=== PATIENT | female | born 1990 | race Caucasian/White ===

== ENCOUNTER → 2016-09-07 | Outpatient (CLI) | payer OTHER ==
--- NOTE | 2016-09-07 15:16 | US ---
EXAMINATION TYPE: US pelvic complete DATE OF EXAM: 09/07/2016 3:01 PM COMPARISON: Prior pelvic ultrasound 06/04/2011. CLINICAL HISTORY: R10.2 Pelvic pain. gen pelvic pain; abnormal pap TECHNIQUE: Transabdominal (TA) Date of LMP: EXAM MEASUREMENTS: Uterus: 8.7 x 4.8 x 5.6 cm Endometrial Stripe: 0.9 cm Right Ovary: 4.0 x 1.3 x 3.3 cm Left Ovary: 3.7 x 1.7 x 2.9 cm 1. Uterus: retroflexed wnl 2. Endometrium: wnl 3. Right Ovary: wnl 4. Left Ovary: wnl 5. Bilateral Adnexa: wnl 6. Posterior cul-de-sac: some free fluid with in the posterior cds Uterus is slightly retroverted in shape. Tiny amount of free fluid in pelvic cul-de-sac is nonspecifi c finding. Both ovaries are identified. No concerning adnexal masses are seen. IMPRESSION: Tiny amount of free fluid in pelvic cul-de-sac, nonspecific finding otherwise unremarkabl e study.
== END | disposition home or self-care (01) ==
LOC: RADUSWWP 14:46
PROVIDERS: ATTEND Obstetrics & Gynecology
DX: R10.2 Pelvic and perineal pain (principal)
CPT/HCPCS: 76856

== ENCOUNTER 2016-12-04 12:06 | Emergency (ER) | payer OTHER ==
[2016-12-04 12:11] VITALS: BP 107/61; PULSE 86; RESP 16; TEMP 99.6
--- NOTE | 2016-12-04 12:51 | ED ---
General Adult HPI - General Chief complaint: OB/Uterine Contractions Stated complaint: Cramping/Spotting 17 weeks Time Seen by Provider: 12/04/16 12:14 Source: patient, RN notes reviewed Mode of arrival: ambulatory Limitations: no limitations - History of Present Illness Initial comments: Patient 26-year-old female who is 17 weeks , who presents emergency room today with chief complaint of spotting. Patient does admit that she noticed some spots morning. Does admit some lower abdominal cramping. Patient denies any other complaints or symptoms. She has seen OB for this . States she has had ultrasound which did show a single IUP. Patient denies any other complaints. - Related Data Home Medications Medication Instructions Recorded Confirmed Pnv,Calcium 72/Iron/Folic Acid 1 tab PO DAILY 12/04/16 12/04/16 [ Plus Tablet] Allergies Allergy/AdvReac Type Severity Reaction Status Date / Time No Known Allergies Allergy Verified 12/04/16 12:58 Review of Systems ROS Statement: Those systems with pertinent positive or pertinent negative responses have been documented in the HPI. ROS Other: All systems not noted in ROS Statement are negative. Past Medical History Past Medical History: No Reported History History of Any Multi-Drug Resistant Organisms: None Reported Past Surgical History: No Surgical Hx Reported Past Psychological History: No Psychological Hx Reported Smoking Status: Never smoker Past Alcohol Use History: None Reported Past Drug Use History: None Reported General Exam - General Exam Comments Initial Comments: General: The patient is awake and alert, in no distress, and does not appear acutely ill. Eye: Pupils are equal, round and reactive to light, extra-ocular movements are intact. No nystagmus. There is normal conjunctiva bilaterally. No signs of icterus. Ears, nose, mouth and throat: There are moist mucous membranes and no oral lesions. Neck: The neck is supple, there is no tenderness or JVD. Cardiovascular: There is a regular rate and rhythm. No murmur, rub or gallop is appreciated. Respiratory: Lungs are clear to auscultation, respirations are non-labored, breath sounds are equal. No wheezes, stridor, rales, or rhonchi. Gastrointestinal: Soft, non-distended, non-tender abdomen without masses or organomegaly noted. There is no rebound or guarding present. No CVA tenderness. Bowel sounds are unremarkable. Musculoskeletal: Normal ROM, no tenderness. Strength 5/5. Sensation intact. Pulses equal bilaterally 2+. Neurological: A&O x 3. CN II-XII intact, There are no obvious motor or sensory deficits. Coordination appears grossly intact. Speech is normal. Skin: Skin is warm and dry and no rashes or lesions are noted. Psychiatric: Cooperative, appropriate mood & affect, normal judgment. Limitations: no limitations Course Vital Signs 12/04/16 12:07 Temperature 99.6 F Pulse Rate 86 Respiratory 16 Rate Blood Pressure 107/61 O2 Sat by Pulse 100 Oximetry Medical Decision Making - Medical Decision Making heart tones performed by OB nurse. 1 48 bpm. Patient's labs reviewed. Rh-. Patient does admit to some spotting that started earlier this morning. Patient's vitals stable. No pain. No other complaints at this time. Patient will be given Auralgan here in the emergency room. Advised follow-up with the ALLERGY NURSE over the next 1-2 days. Advised return here to the emergency room for any other concerns. - Lab Data Result diagrams: 12/04/16 12:50 12/04/16 12:50 Lab Results 12/04/16 12/04/16 12/04/16 Range/Units 12:50 12:50 12:50 WBC 11.3 H (3.8-10.6) k/uL RBC 4.05 (3.80-5.40) m/uL Hgb 12.7 (11.4-16.0) gm/dL Hct 36.8 (34.0-46.0) % MCV 90.8 D (80.0-100.0) fL MCH 31.5 (25.0-35.0) pg MCHC 34.6 (31.0-37.0) g/dL RDW 13.2 (11.5-15.5) % Plt Count 185 (150-450) k/uL Neutrophils % 84 % Lymphocytes % 10 % Monocytes % 4 % Eosinophils % 1 % Basophils % 0 % Neutrophils # 9.5 H (1.3-7.7) k/uL Lymphocytes # 1.2 (1.0-4.8) k/uL Monocytes # 0.4 (0-1.0) k/uL Eosinophils # 0.1 (0-0.7) k/uL Basophils # 0.0 (0-0.2) k/uL Sodium 137 (137-145) mmol/L Potassium 4.1 (3.5-5.1) mmol/L Chloride 108 H (98-107) mmol/L Carbon Dioxide 20 L (22-30) mmol/L Anion Gap 9 mmol/L BUN 6 L (7-17) mg/dL Creatinine 0.62 (0.52-1.04) mg/dL Est GFR (MDRD) Af Amer >60 (>60 ml/min/1.73 sqM) Est GFR (MDRD) Non-Af >60 (>60 ml/min/1.73 sqM) Glucose 69 L (74-99) mg/dL Calcium 8.8 (8.4-10.2) mg/dL Total Bilirubin 0.3 (0.2-1.3) mg/dL AST 20 (14-36) U/L ALT 30 (9-52) U/L Alkaline Phosphatase 58 (38-126) U/L Total Protein 6.4 (6.3-8.2) g/dL Albumin 3.7 (3.5-5.0) g/dL Urine Color Urine Appearance (Clear) Urine pH (5.0-8.0) Ur Specific Leadore (1.001-1.035) Urine Protein (Negative) Urine Glucose (UA) (Negative) Urine Ketones (Negative) Urine Blood (Negative) Urine Nitrite (Negative) Urine Bilirubin (Negative) Urine Urobilinogen (<2.0) mg/dL Ur Leukocyte Esterase (Negative) Blood Type AB Negative Blood Type Recheck No 12/04/16 Range/Units 12:50 WBC (3.8-10.6) k/uL RBC (3.80-5.40) m/uL Hgb (11.4-16.0) gm/dL Hct (34.0-46.0) % MCV (80.0-100.0) fL MCH (25.0-35.0) pg MCHC (31.0-37.0) g/dL RDW (11.5-15.5) % Plt Count (150-450) k/uL Neutrophils % % Lymphocytes % % Monocytes % % Eosinophils % % Basophils % % Neutrophils # (1.3-7.7) k/uL Lymphocytes # (1.0-4.8) k/uL Monocytes # (0-1.0) k/uL Eosinophils # (0-0.7) k/uL Basophils # (0-0.2) k/uL Sodium (137-145) mmol/L Potassium (3.5-5.1) mmol/L Chloride (98-107) mmol/L Carbon Dioxide (22-30) mmol/L Anion Gap mmol/L BUN (7-17) mg/dL Creatinine (0.52-1.04) mg/dL Est GFR (MDRD) Af Amer (>60 ml/min/1.73 sqM) Est GFR (MDRD) Non-Af (>60 ml/min/1.73 sqM) Glucose (74-99) mg/dL Calcium (8.4-10.2) mg/dL Total Bilirubin (0.2-1.3) mg/dL AST (14-36) U/L ALT (9-52) U/L Alkaline Phosphatase (38-126) U/L Total Protein (6.3-8.2) g/dL Albumin (3.5-5.0) g/dL Urine Color Colorless Urine Appearance Clear (Clear) Urine pH 6.0 (5.0-8.0) Ur Specific Leadore 1.001 (1.001-1.035) Urine Protein Negative (Negative) Urine Glucose (UA) Negative (Negative) Urine Ketones Negative (Negative) Urine Blood Negative (Negative) Urine Nitrite Negative (Negative) Urine Bilirubin Negative (Negative) Urine Urobilinogen <2.0 (<2.0) mg/dL Ur Leukocyte Esterase Negative (Negative) Blood Type Blood Type Recheck Disposition Clinical Impression: Threatened Disposition: HOME SELF-CARE Condition: Good Instructions: Threatened Miscarriage (ED) Additional Instructions: Please follow-up with ALLERGY NURSE over the next 1-2 days. Please return here the emergency room if any symptoms increase or worsen or for any other concerns. Referrals: Elmo Montaño DO [Primary Care Provider] - 1-2 days Vinita Devi DO [Doctor of Osteopathic Medicine] - 1-2 days Time of Disposition: 13:49
[2016-12-04 13:06] LABS: Appearance,Urine Clear (Clear); Basophils % (A) 0 %; Bilirubin,Urine Negative (Negative); CH 32.2; CHCM 35.6; Eosinophils # (A) 0.1 k/uL (0-0.7); Eosinophils % (A) 1 %; Glucose,Urine (UA) Negative (Negative); HCT 36.8 % (34.0-46.0); HDW 2.69; HGB 12.7 gm/dL (11.4-16.0); Ketones,Urine Negative (Negative); Leukocyte Esterase,Urine Negative (Negative); Luc # (Auto) 0.15; Luc % (Auto) 1; Lymphocytes # (A) 1.2 k/uL (1.0-4.8); Lymphocytes % (A) 10 %; MCH 31.5 pg (25.0-35.0); MCHC 34.6 g/dL (31.0-37.0); Mean Platelet Volume 7.6; Monocytes # (A) 0.4 k/uL (0-1.0); Monocytes % (A) 4 %; Neutrophils # (A) 9.5 k/uL (1.3-7.7); Neutrophils % (A) 84 %; Nitrite,Urine Negative (Negative); Protein,Urine Negative (Negative); RBC 4.05 m/uL (3.80-5.40); RDW 13.2 % (11.5-15.5); Specific Gravity,Urine 1.001 (1.001-1.035); UA Billing (MACRO vs. MICRO) CHEM; Urobilinogen,Urine <2.0 mg/dL (<2.0); WBC 11.3 k/uL (3.8-10.6); WBC (Perox) 12.03
[2016-12-04 13:16] LABS: ALT 30 U/L (9-52); AST 20 U/L (14-36); Alkaline Phosphatase 58 U/L (38-126); Anion Gap 9 mmol/L; Blood Urea Nitrogen 6 mg/dL (7-17); Calcium 8.8 mg/dL (8.4-10.2); Carbon Dioxide 20 mmol/L (22-30); Chloride 108 mmol/L (98-107); Glucose 69 mg/dL (74-99); Non-African American GFR(MDRD) >60 (>60 ml/min/1.73 sqM); Potassium 4.1 mmol/L (3.5-5.1); Sodium 137 mmol/L (137-145); Total Bilirubin 0.3 mg/dL (0.2-1.3); Total Protein 6.4 g/dL (6.3-8.2)
[2016-12-04 13:20] LABS: MCV 90.8 fL (80.0-100.0)
[2016-12-04] MEDS ORDERED: Rhogam IMMUNE GLOBULIN 1,500 UNIT/1 ML IM ONE (13:46)
== END 2016-12-04 14:15 | disposition home or self-care (01) ==
LOC: EC 12:06
DX: O20.0 Threatened abortion (principal); Z3A.17 17 weeks gestation of pregnancy; Z79.899 Other long term (current) drug therapy
CPT/HCPCS: 36415; 86900; 86901; 80053; 85025; 86850; 81003; 99284; 96372; 87086; J2791

== ENCOUNTER 2016-12-09 18:37 | Observation (INO) | payer OTHER ==
--- NOTE | 2016-12-09 19:16 | ED ---
General Adult HPI <Jhon Pedersen - Last Filed: 12/09/16 20:10> - General Source: patient, RN notes reviewed Mode of arrival: ambulatory Limitations: no limitations <Orly Erazo - Last Filed: 12/09/16 20:15> - General Chief complaint: Vaginal Bleeding Stated complaint: bleeding, 17 weeks Time Seen by Provider: 12/09/16 19:02 - History of Present Illness Initial comments: 26-year-old female with a presents to the emergency department with a chief complaint of vaginal bleeding at 17 weeks . Patient states this initially started with brown spotting and has progressed to vaginal bleeding. Patient states she was evaluated on Monday for brown spotting they did blood work everything looked fine. She followed up with her doctor on Monday who did ultrasound and stated everything looked good as well. She states now she's having heavy bleeding. Patient states that she is soaking a pad. Patient states she is passing some clots. Patient denies any lightheadedness or dizziness. Patient was concerned due to the bleeding so she thought that she should be evaluated. Patient states she is having cramping like infection type discomfort. Denies any nausea or vomiting. Patient denies any recent fever, chills, shortness of breath, chest pain, back pain,nausea vomiting, numbness or tingling, dysuria or hematuria, constipation or diarrhea, headaches or visual changes, or any other current symptoms. (Orly Erazo) - Related Data Home Medications Medication Instructions Recorded Confirmed Upb-Lvif-Ddwny Acid 1 cap PO DAILY 12/09/16 12/09/16 [-U Capsule (formulary)] Allergies Allergy/AdvReac Type Severity Reaction Status Date / Time No Known Allergies Allergy Verified 12/09/16 18:57 Review of Systems ROS Other: All systems not noted in ROS Statement are negative. <Jhon Pedersen - Last Filed: 12/09/16 20:10> ROS Other: All systems not noted in ROS Statement are negative. <Orly Erazo - Last Filed: 12/09/16 20:15> ROS Statement: Those systems with pertinent positive or pertinent negative responses have been documented in the HPI. Past Medical History Past Medical History: No Reported History History of Any Multi-Drug Resistant Organisms: None Reported Past Surgical History: No Surgical Hx Reported Past Psychological History: No Psychological Hx Reported Smoking Status: Never smoker Past Alcohol Use History: None Reported Past Drug Use History: None Reported <KaceyOrly - Last Filed: 12/09/16 20:15> General Exam Limitations: no limitations General appearance: alert, in no apparent distress ENT exam: Present: normal exam, mucous membranes moist Neck exam: Present: normal inspection. Absent: tenderness, meningismus, lymphadenopathy Respiratory exam: Present: normal lung sounds bilaterally. Absent: respiratory distress, wheezes, rales, rhonchi, stridor Cardiovascular Exam: Present: regular rate, normal rhythm, normal heart sounds. Absent: systolic murmur, diastolic murmur, rubs, gallop, clicks External exam: Present: normal external exam Speculum exam: Present: cervical discharge (Does appear to have some amniotic sac through the cervix), vaginal bleeding Extremities exam: Present: normal inspection, full ROM, normal capillary refill. Absent: tenderness, pedal edema, joint swelling, calf tenderness Back exam: Present: normal inspection Neurological exam: Present: alert, oriented X3 Psychiatric exam: Present: normal affect, normal mood <Orly Erazo - Last Filed: 12/09/16 20:15> Medical Decision Making - Lab Data Result diagrams: 12/09/16 19:40 <Jhon Pedersen - Last Filed: 12/09/16 20:10> - Lab Data Result diagrams: 12/09/16 19:40 - Radiology Data Radiology results: image reviewed <KaceyOrly - Last Filed: 12/09/16 20:15> - Medical Decision Making Medical decision-making. The patient has had vaginal bleeding for several days. She presents today with pressure and continued bleeding. The patient's 17 weeks along. 5 days ago the patient was in emergency room had some bleeding and received RhoGAM. The patient sees Dr. Devi. While having the ultrasound done this evening surgical instruments inspector reports that the water did break and she can see the head starting the crown through the cervix. The case was discussed with Dr. Larsen. He wants the patient sent up to labor and delivery. Patient' s vital signs show temperature 97.6 pulse 84 respiratory rate 20 pulse ox 99% room air blood pressure 123/58. Dr. Pedersen (Jhon Pedersen) 26-year-old female presents emergency Department chief complaint of vaginal bleeding in . Patient's previous visit on Monday is reviewed and she does appear that she received a RHogam injection at that time. At this time ultrasound was performed with the patient's water did break and they do see the head and position for delivery. At this time Dr. Pedersen talked to Dr. Love and the patient will be admitted for further care. We did order pain medication (Orly Erazo) - Lab Data Lab Results 12/09/16 12/09/16 Range/Units 19:40 19:40 WBC 13.9 H (3.8-10.6) k/uL RBC 4.11 (3.80-5.40) m/uL Hgb 12.9 (11.4-16.0) gm/dL Hct 35.9 (34.0-46.0) % MCV 87.6 (80.0-100.0) fL MCH 31.5 (25.0-35.0) pg MCHC 36.0 (31.0-37.0) g/dL RDW 12.3 (11.5-15.5) % Plt Count 209 (150-450) k/uL Neutrophils % 85 % Lymphocytes % 10 % Monocytes % 3 % Eosinophils % 1 % Basophils % 0 % Neutrophils # 11.8 H (1.3-7.7) k/uL Lymphocytes # 1.3 (1.0-4.8) k/uL Monocytes # 0.4 (0-1.0) k/uL Eosinophils # 0.1 (0-0.7) k/uL Basophils # 0.0 (0-0.2) k/uL PT 9.3 (9.0-12.0) sec INR 0.9 (<1.2) APTT 22.7 (22.0-30.0) sec Disposition <Jhon Pedersen - Last Filed: 12/09/16 20:10> Time of Disposition: 20:15 Decision Date: 12/09/16 Decision Time: 20:15 <Orly Erazo - Last Filed: 12/09/16 20:15> Clinical Impression: Spontaneous miscarriage Disposition: ADMITTED IP TO THIS [facility] Condition: Stable Referrals: Elmo Montaño DO [Primary Care Provider] - 1-2 days
[2016-12-09 19:58] LABS: Basophils % (A) 0 %; CH 31.2; CHCM 35.8; Eosinophils # (A) 0.1 k/uL (0-0.7); Eosinophils % (A) 1 %; HCT 35.9 % (34.0-46.0); HDW 2.78; HGB 12.9 gm/dL (11.4-16.0); Luc # (Auto) 0.17; Luc % (Auto) 1; Lymphocytes # (A) 1.3 k/uL (1.0-4.8); Lymphocytes % (A) 10 %; MCH 31.5 pg (25.0-35.0); MCV 87.6 fL (80.0-100.0); Mean Platelet Volume 7.1; Monocytes # (A) 0.4 k/uL (0-1.0); Monocytes % (A) 3 %; Neutrophils # (A) 11.8 k/uL (1.3-7.7); Neutrophils % (A) 85 %; RBC 4.11 m/uL (3.80-5.40); RDW 12.3 % (11.5-15.5); WBC 13.9 k/uL (3.8-10.6); WBC (Perox) 13.98
[2016-12-09] MEDS ORDERED: MORPHINE SULFATE 4 MG/ML SYRINGE IV STA (20:05)
[2016-12-09 20:09] LABS: INR 0.9 (<1.2); Partial Thromboplastin Time 22.7 sec (22.0-30.0); Prothrombin Time 9.3 sec (9.0-12.0)
[2016-12-09] MEDS ORDERED: SODIUM CHLORIDE 0.9% 1,000 ML IV STA (20:12)
[2016-12-09 20:18] LABS: ALT 35 U/L (9-52); AST 21 U/L (14-36); Alkaline Phosphatase 83 U/L (38-126); Anion Gap 9 mmol/L; Blood Urea Nitrogen 10 mg/dL (7-17); Calcium 9.2 mg/dL (8.4-10.2); Carbon Dioxide 22 mmol/L (22-30); Chloride 106 mmol/L (98-107); Glucose 77 mg/dL (74-99); Non-African American GFR(MDRD) >60 (>60 ml/min/1.73 sqM); Sodium 137 mmol/L (137-145); Total Bilirubin 0.3 mg/dL (0.2-1.3); Total Protein 6.5 g/dL (6.3-8.2)
[2016-12-09 20:48] VITALS: BMI 19.5
--- NOTE | 2016-12-09 20:50 | US ---
EXAMINATION TYPE: US OB limited DATE OF EXAM: 12/09/2016 COMPARISON: None CLINICAL HISTORY: PainBleeding TECHNIQUE: Transabdominal (TA) GESTATIONAL AGE / DATING Physician Established: (17 weeks/3 days) EDC: 05/16/2017 Dates by LMP: (17 weeks/3 days) EDC: 05/16/2017 Dates by First Scan: ) This is first scan SURVEY The cervix is open head within. Patients water broke during exam. Stopped exam and took patient back to ER OB Doctor was paged. IMPRESSION: This limited exam shows opening of the cervical canal that measures 1.7 cm. There is fluid in the vag inal vault consistent with herniation of the membranes. There is cephalic presentation. The hea d is at the open cervical os.
[2016-12-09] MEDS ORDERED: AMPICILLIN 2,000 MG in SODIUM CHLORIDE 0.9% 100 ML IVPB STA (21:00)
[2016-12-09] MEDS: LACTATED RINGERS 1,000 ML IV SCH (21:22)
[2016-12-09] MEDS ORDERED: BUPIVACAINE (PF) 0.25% 25 ML, fentaNYL (PF) 200 MCG in SODIUM CHLORIDE 0.9% 71 ML EPIDURAL ONE (21:45)
[2016-12-09] MEDS ORDERED: IBUPROFEN 600 MG TAB PO PRN (22:39)
[2016-12-09] MEDS ORDERED: diphenhydrAMINE 50 MG CAP PO PRN (22:39)
[2016-12-09] MEDS ORDERED: diphenhydrAMINE 50 MG/ML 1 ML VIAL IVP PRN ×2 (22:39)
[2016-12-09] MEDS ORDERED: SIMETHICONE 80 MG CHEWABLE PO PRN (22:39)
[2016-12-09] MEDS ORDERED: LANOLIN CREAM 5 GM TUBE TOPICAL PRN (22:39)
[2016-12-09] MEDS ORDERED: HYDROCORTISONE 2.5% RECTAL CREAM 30 GM TUBE RECTAL PRN (22:39)
[2016-12-09] MEDS ORDERED: BENZOCAINE/MENTHOL SPRAY 1 GM/SPRAY AEROSOL TOPICAL PRN (22:39)
[2016-12-09] MEDS ORDERED: WITCH HAZEL 1 EACH MED..PAD TOPICAL PRN (22:39)
[2016-12-09] MEDS ORDERED: ZOLPIDEM 5 MG TAB PO PRN (22:39)
[2016-12-09] MEDS ORDERED: Acetaminophen-Codeine 300-30mg TAB PO PRN ×2 (22:39)
[2016-12-09] MEDS ORDERED: ACETAMINOPHEN TAB 325 MG TAB PO PRN (22:39)
[2016-12-09] MEDS ORDERED: diphenhydrAMINE 25 MG CAP PO PRN (22:39)
[2016-12-09] MEDS ORDERED: OXYTOCIN 20 UNITS/1000 ML NS 1,000 ML IV SCH (22:45)
--- NOTE | 2016-12-09 23:13 | P.HPOB ---
History of Present Illness H&P Date: 12/09/16 Chief Complaint: Intrauterine at 17 weeks premature rupture of membranes Patient is a 26-year-old at 17 weeks gestation who began having some dark spotting on Monday. She was seen in the office on Monday and ultrasound was performed. At that time no gross abnormality's were noted and released home. Dr. Gleason had given her precautions and when she began having some mild bleeding and passing clots this afternoon she came to the emergency room. In the emergency room she underwent a ultrasound and during the ultrasound her water broke. It is noted that in seeing the pictures that were there during the initial part of the ultrasound there was a dilated cervix with a bag of water in the vagina indicating likely cervical incompetence. She had not been betty prior to that and had not had any sick significant pains or other findings like leaking or any significant bleeding. Her past medical history otherwise has been generally unremarkable. Past surgical history none. She did have a 6 week demise in the past as well. Family history is noncontributory. ALLERGIES none. Medications and social history are also negative. Assessment intrauterine at 17 weeks with premature rupture membranes in a nonviable baby. Plan will be to anticipate delivery. If she is not making any progress towards delivery we will plan to [facility] for assistance in getting her betty. We'll also do IV antibiotics as prophylaxis and since we don't know for sure that there is not some type of infection that may have precipitated this event. Her white blood cell count is however only slightly elevated at 13 which is not surprising in . On physical exam vital signs are stable and she is afebrile. Heart regular, lungs clear, extremities without pain. Past Medical History Past Medical History: No Reported History History of Any Multi-Drug Resistant Organisms: None Reported Past Surgical History: No Surgical Hx Reported Past Anesthesia/Blood Transfusion Reactions: No Reported Reaction Past Psychological History: No Psychological Hx Reported Smoking Status: Never smoker Past Alcohol Use History: None Reported Past Drug Use History: None Reported - Past Family History Mother Family Medical History: No Reported History Medications and Allergies Home Medications Medication Instructions Recorded Confirmed Type Mxo-Vinw-Jefkk Acid 1 cap PO DAILY 12/09/16 12/09/16 History [-U Capsule (formulary)] Allergies Allergy/AdvReac Type Severity Reaction Status Date / Time No Known Allergies Allergy Verified 12/09/16 18:57 Exam Osteopathic Statement: *. No significant issues noted on an osteopathic structural exam other than those noted in the History and Physical/Consult. - Vital Signs Vital signs: Vital Signs Temp Pulse Pulse Resp BP BP Pulse Ox 12/09/16 22:45 97.8 F 90 15 101/54 12/09/16 20:43 98 F 94 15 109/66 12/09/16 18:55 97.6 F 84 20 123/58 99 Intake and Output 12/09/16 12/09/16 12/10/16 14:59 22:59 06:59 Other: # Voids 1 Weight 56.699 kg Patient Weight 12/10/16 06:59 Weight 56.699 kg Results Result Diagrams: 12/09/16 19:40 12/09/16 19:40 Abnormal Lab Results - Last 24 Hours (Table) 12/09/16 Range/Units 19:40 WBC 13.9 H (3.8-10.6) k/uL Neutrophils # 11.8 H (1.3-7.7) k/uL
--- NOTE | 2016-12-09 23:14 | P.PROBDLV ---
Vaginal Delivery Note - . Vaginal Delivery Note: Patient progressed and delivered a nonviable baby over an intact perineum. A short while later the placenta was also delivered and appears grossly to be intact. Her bleeding is well controlled and we will plan to monitor for now and make decisions on her discharge based on how she feels through the night. I was not present at the time of delivery, arriving just after delivery of the placenta
[2016-12-10] MEDS: AMPICILLIN 1,000 MG in SODIUM CHLORIDE 0.9% 50 ML IVPB SCH ×2 (01:11→05:35)
[2016-12-10] MEDS: LACTATED RINGERS 1,000 ML IV SCH (06:33)
[2016-12-10] MEDS ORDERED: SENNOSIDES-DOCUSATE SODIUM 1 EACH TAB PO SCH (08:00)
--- NOTE | 2016-12-10 08:20 | P.DS ---
Providers Date of admission: 12/09/16 20:12 Expected date of discharge: 12/10/16 Attending physician: Brenden Love [facility] Course: Patient is doing well this morning day 1 following delivery of a nonviable 17 week fetus. Her bleeding is reported to be light she is involuting , voiding and she is tolerating a diet. She is requesting discharge home. We' ll plan discharged home today she'll follow up with Dr. Gleason this week. Otherwise vital signs are stable and afebrile. Heart regular, lungs clear, extremities without pain. Abdomen is soft and uterus top eighth is firm. Assessment day 1 demise. Plan discharged home Patient Condition at Discharge: Good Plan - Discharge Summary New Discharge Prescriptions: No Action Efn-Mxpo-Rbqcy Acid [-U Capsule (formulary)] 1 cap PO DAILY Discharge Medication List Vbc-Htpm-Jyywu Acid [-U Capsule (formulary)] 1 cap PO DAILY [History] Follow up Appointment(s)/Referral(s): Elmo Montaño DO [Primary Care Provider] - 1-2 days Vinita Devi DO [Doctor of Osteopathic Medicine] - 1 Week Activity/Diet/Wound Care/Special Instructions: No heavy lifting, limit stairs and driving and pelvic rest. If any high temperatures, heavy bleeding, or severe pain call my office Discharge Disposition: HOME SELF-CARE
[2016-12-10 09:09] VITALS: BP 95/57; PULSE 91; RESP 17; TEMP 98.2
== END 2016-12-10 09:16 | disposition home or self-care (01) ==
LOC: EC 18:37 → INTOOBSV 20:12 → 4FBP 20:12
PROVIDERS: ADMIT Obstetrics & Gynecology; ATTEND Obstetrics & Gynecology
DX: O02.1 Missed abortion (principal); O42.912 Preterm premature rupture of membranes, unspecified as to length of time between rupture and onset of labor, second trimester; Z3A.17 17 weeks gestation of pregnancy; Z37.1 Single stillbirth
CPT/HCPCS: 96361; 96365; 96366; 99285; 36415; 86900; 86901; 88305; 80053; 85025; 85610; 85730; 86850; 86870; 86880; 84702; 88300; 76815; G0378; J0290 ×2; J2590; 96367

== ENCOUNTER → 2017-01-10 | Outpatient (CLI) | payer OTHER ==
[2017-01-10 10:42] LABS: Basophils % (A) 1 %; CH 30.1; Eosinophils # (A) 0.1 k/uL (0-0.7); Eosinophils % (A) 3 %; HCT 41.9 % (34.0-46.0); HDW 2.52; HGB 14.3 gm/dL (11.4-16.0); Luc # (Auto) 0.11; Luc % (Auto) 3; Lymphocytes # (A) 1.3 k/uL (1.0-4.8); Lymphocytes % (A) 37 %; MCH 31.2 pg (25.0-35.0); MCV 91.6 fL (80.0-100.0); Mean Platelet Volume 7.8; Monocytes # (A) 0.2 k/uL (0-1.0); Monocytes % (A) 7 %; Neutrophils # (A) 1.8 k/uL (1.3-7.7); Neutrophils % (A) 49 %; RBC 4.58 m/uL (3.80-5.40); RDW 11.3 % (11.5-15.5); WBC 3.6 k/uL (3.8-10.6); WBC (Perox) 3.82
== END | disposition home or self-care (01) ==
LOC: LABPAT 09:08
PROVIDERS: ATTEND Obstetrics & Gynecology
DX: Z01.812 Encounter for preprocedural laboratory examination (principal)
CPT/HCPCS: 85025

== ENCOUNTER 2017-01-17 07:32 | Day surgery (SDC) | payer OTHER ==
[2017-01-12 15:59] VITALS: BMI 19.1
--- NOTE | 2017-01-16 19:47 | P.HPOB ---
History of Present Illness H&P Date: 01/16/17 Chief Complaint: Family planning This is a 26-year-old female 2 para 1 who presents for laparoscopic bilateral tubal ligation via fulguration for family planning. She recently had a 17 week demise with miscarriage. She no longer wants to pursue fertility and would like permanent sterilization. Obstetrical history: . History of 1 vaginal delivery at term. History of 1 miscarriage at approximately 17-1/2 weeks. Gynecologic history: No history of sexual transmitted diseases. Social history: She is area she works at [employer] in [place]. Review of Systems Constitutional: Denies chills, Denies fever Eyes: denies blurred vision, denies pain Ears, nose, mouth and throat: Denies headache, Denies sore throat Cardiovascular: Denies chest pain, Denies shortness of breath Respiratory: Denies cough Gastrointestinal: Denies abdominal pain, Denies diarrhea, Denies nausea, Denies vomiting Genitourinary: Denies dysuria, Denies hematuria Menstruation: Reports cycle variable Musculoskeletal: Denies myalgias Neurological: Denies numbness, Denies weakness Psychiatric: Denies anxiety, Denies depression Endocrine: Denies fatigue, Denies weight change Past Medical History Past Medical History: No Reported History Additional Past Medical History / Comment(s): miscarriage in November History of Any Multi-Drug Resistant Organisms: None Reported Past Surgical History: Tonsillectomy Past Anesthesia/Blood Transfusion Reactions: No Reported Reaction Past Psychological History: No Psychological Hx Reported Smoking Status: Never smoker Past Alcohol Use History: None Reported Past Drug Use History: None Reported - Past Family History Mother Family Medical History: No Reported History Medications and Allergies Home Medications Medication Instructions Recorded Confirmed Type No Known Home Medications [No 01/12/17 01/12/17 History Known Home Medications] Allergies Allergy/AdvReac Type Severity Reaction Status Date / Time No Known Allergies Allergy Verified 01/12/17 15:18 Exam Osteopathic Statement: *. No significant issues noted on an osteopathic structural exam other than those noted in the History and Physical/Consult. HEENT: Within normal limits Heart: Regular rate and rhythm Lungs: Clear to auscultation bilaterally Abdomen: Soft, nontender Pelvic exam: Uterus is slightly enlarged, retroverted, with no adnexal masses palpated. A scant brown discharge noted. Extremities: Negative Homans Assessment and Plan (1) Family planning Status: Acute Plan: Proceed with laparoscopic bilateral tubal ligation via fulguration. I have discussed the risks, benefits, and alternative therapies for the above- mentioned procedure and for both sedation/anesthesia as well as necessary blood products administration, if indicated, as they pertain to this patient. The patient has indicated her understanding and acceptance of the risks and procedures discussed.
[~2017-01-17 07:32] MED LIST: DEXAMETHASONE SOD PHOSPHATE 10 MG/ML 1 ML VIAL IV ONE; HYDROmorphone 0.5 MG/0.5 ML SYRINGE IVP PRN; LACTATED RINGERS 1,000 ML IV SCH; MIDAZOLAM 2 MG/2 ML VIAL IV PRN; ONDANSETRON 4 MG/2 ML VIAL IVP ONE; Pre Op ABX Message 1 EACH MISC MISCELLANE ONE; SCOPOLAMINE 1.5MG/72HR PATCH TRANSDERM ONE
[2017-01-17] MEDS ORDERED: LIDOCAINE 1% 20 ML VIAL (10MG/ML) FOR IV START INTRADERMA ONE (08:00)
[2017-01-17] MEDS ORDERED: NEOSTIGMINE 1 MG/ML 10 ML VIAL ONE (09:09)
[2017-01-17] MEDS ORDERED: ROCURONIUM BROMIDE 10 MG/ML 10 ML VIAL IV ONE (09:09)
[2017-01-17] MEDS ORDERED: KETOROLAC 30 MG/ML 1 ML VIAL ONE (09:09)
[2017-01-17] MEDS ORDERED: GLYCOPYRROLATE 0.2 MG/ML 2 ML VIAL ONE (09:09)
[2017-01-17] MEDS ORDERED: PROPOFOL 10 MG/ML 20 ML VIAL IV ONE (09:09)
[2017-01-17] MEDS ORDERED: MIDAZOLAM 2 MG/2 ML VIAL ONE (09:09)
[2017-01-17] MEDS ORDERED: SUCCINYLCHOLINE CHLORIDE 100 MG/5 ML SYR IV ONE (09:09)
[2017-01-17] MEDS ORDERED: fentaNYL (PF) 50 MCG/ML 2 ML AMP ONE (09:09)
[2017-01-17] MEDS ORDERED: LIDOCAINE 1% INJ 10MG/ML (20 ML MDV) ONE (09:09)
[2017-01-17] MEDS ORDERED: BUPIVACAINE (PF) 0.25% 30 ML VIAL SQ ONE ×2 (09:29→09:40)
--- NOTE | 2017-01-17 09:44 | P.OP ---
Date of Procedure: 01/17/17 Preoperative Diagnosis: Family planning Postoperative Diagnosis: Same Procedure(s) Performed: Laparoscopic bilateral tubal ligation via fulguration Anesthesia: PAT Surgeon: Vinita Devi Estimated Blood Loss (ml): 5 Pathology: none sent Condition: stable Disposition: same day Indications for Procedure: This is a 26-year-old female 2 para 1 who presents for laparoscopic bilateral tubal ligation via fulguration for family planning. She recently had a 17 week demise with miscarriage. She no longer wants to pursue fertility and would like permanent sterilization. Operative Findings: Uterus is retroverted, sounded to 9-1/2 cm. Normal uterus tubes and ovaries are noted. There is a small follicular cyst noted on the right ovary. Appendix appears normal. Description of Procedure: The patient is taken to the operating room where she is placed in the dorsal lithotomy position. She is prepped and draped in the normal sterile fashion. Examination is performed under anesthesia. Uterus is found to be in a retroverted position. No adnexal masses were palpated. Next a bivalve speculum was placed in the patient's vagina. A single-tooth tenaculum was used to grasp the anterior lip of the cervix. The uterus was sounded to 9.5 cm. The kroner uterine manipulator was then inserted through the cervix and the balloon was inflated. The single-tooth tenaculum is removed. Speculum was removed and gloves were changed and attention was turned to the abdomen. The infraumbilical fold was grasped in transverse fashion with 2 Allis clamps. A small transverse incision was made with a scalpel. A hemostat was used to carry the incision down to the underlying layer of fascia. A towel clip was placed above the umbilicus for retraction. An 11 mm disposable bladeless trocar was then inserted into the peritoneal cavity under direct visualization. Once inside, pneumoperitoneum was achieved with CO2 gas. The insert was removed and the camera was replaced. Intraperitoneal placement was confirmed. No bleeding was noted. Next the patient was placed in Trendelenburg position. A small stab incision was made suprapubically and a 5 mm disposable bladeless trocar was inserted into the peritoneal cavity under direct visualization. Once inside pelvic contents were inspected. Next a bipolar Kleppinger instrument was placed through the inferior trocar and the midportion of each tube was brought away from other structures and completely fulgurated on approximate 2-3 cm segment of each tube. Excellent hemostasis was noted. A picture was taken. Pneumoperitoneum was released after the inferior trocar was removed under direct visualization. The upper trocar was then removed. The fascial incision was closed with 0 Vicryl suture in interrupted [id number] stitch. The skin incisions were then closed with 4-0 Vicryl suture in a subcuticular fashion. The incision sites and then injected with quarter percent Marcaine. Approximately 8 mL are used. Next the kroner uterine manipulator was removed. Minimal bleeding was noted. All sponge and needle counts are correct. The patient is then taken to recovery room in stable condition.
[2017-01-17 10:04] VITALS: TEMP 98.8
[2017-01-17 10:40] VITALS: RESP 18
[2017-01-17 11:06] VITALS: BP 95/65; PULSE 70
== END 2017-01-17 11:17 | disposition home or self-care (01) ==
LOC: OR 07:32
PROVIDERS: ATTEND Obstetrics & Gynecology
DX: Z30.2 Encounter for sterilization (principal); N83.01 Follicular cyst of right ovary
CPT/HCPCS: 81025; 58670; J2250; J1100; J2710; J2405; J2001; J3010; J1885; J0330; J2704

== ENCOUNTER 2019-12-24 11:41 | Emergency (ER) | payer OTHER ==
[2019-12-24 11:51] VITALS: RESP 16
--- NOTE | 2019-12-24 12:48 | XR ---
EXAMINATION TYPE: XR chest 2V DATE OF EXAM: 12/24/2019 COMPARISON: None HISTORY: 29-year-old female with syncope TECHNIQUE: PA and lateral views FINDINGS: The cardiomediastinal silhouette, aorta, and pulmonary vasculature are within normal limits. Lungs an d pleural spaces are clear. IMPRESSION: No acute cardiopulmonary process.
[2019-12-24 12:58] LABS: Appearance,Urine Clear (Clear); Bilirubin,Urine Negative (Negative); Blood,Urine Negative (Negative); Color,Urine Light Yellow; Glucose,Urine (UA) Negative (Negative); Ketones,Urine Negative (Negative); Leukocyte Esterase,Urine Negative (Negative); Nitrite,Urine Negative (Negative); PH, Urine 5.5 (5.0-8.0); Protein,Urine Negative (Negative); Urobilinogen,Urine <2.0 mg/dL (<2.0)
--- NOTE | 2019-12-24 13:08 | XR ---
EXAMINATION TYPE: XR mandible complete DATE OF EXAM: 12/24/2019 COMPARISON: NONE HISTORY: Pain after fall injury. TECHNIQUE: Complete mandible with both oblique open and closed mouth frontal views and true lateral p rojection. FINDINGS: No acute displaced mandibular fracture is seen. Mandibular condyles are maintained bilatera lly. Overlying soft tissue is unremarkable. IMPRESSION: As above.
--- NOTE | 2019-12-24 13:17 | ED ---
General Adult HPI - General Chief complaint: Syncope Stated complaint: Fall Time Seen by Provider: 12/24/19 12:01 Source: patient, RN notes reviewed, old records reviewed Mode of arrival: ambulatory Limitations: no limitations - History of Present Illness Initial comments: 29-year-old female patient presents to ED for evaluation of syncope. Patient reports that she was sitting on her couch when she stood up stretched and then passed out. Patient reports that she was only out for a short period of time. She having some pain in the anterior jaw. Denies any other symptoms otherwise. Denies any headache changes in vision nausea vomiting pain in any other way. Breathing at baseline. Systemic: Pt denies fatigue, fever/chills, rash. Pt denies weakness, night sweats, weight loss. Neuro: Pt denies headache, visual disturbances. HEENT: Pt denies ocular discharge or irritation, otalgia, rhinorrhea, pharyngitis or notable lymphadenopathy. Cardiopulmonary: Pt denies chest pain, SOB, heart palpitations, dyspnea on exertion. Abdominal/GI: Pt denies abdominal pain, n/v/d. : Pt denies dysuria, burning w/ urination, frequency/urgency. Denies new onset urinary or bowel incontinence. MSK: Pt denies myalgia, loss of strength or function in extremities. Neuro: Pt denies new onset weakness, paresthesias. - Related Data Home Medications Medication Instructions Recorded Confirmed No Known Home Medications 12/24/19 12/24/19 Allergies Allergy/AdvReac Type Severity Reaction Status Date / Time No Known Allergies Allergy Verified 12/24/19 13:05 Review of Systems ROS Statement: Those systems with pertinent positive or pertinent negative responses have been documented in the HPI. ROS Other: All systems not noted in ROS Statement are negative. Past Medical History Past Medical History: No Reported History History of Any Multi-Drug Resistant Organisms: None Reported Past Surgical History: No Surgical Hx Reported Past Anesthesia/Blood Transfusion Reactions: No Reported Reaction Past Psychological History: No Psychological Hx Reported Smoking Status: Never smoker Past Alcohol Use History: None Reported Past Drug Use History: None Reported - Past Family History Mother Family Medical History: No Reported History General Exam - General Exam Comments Initial Comments: Constitutional: NAD, AOX3, Pt has pleasant affect. HEENT: NC/AT, trachea midline, neck supple, no lymphadenopathy. External ears appear normal, without discharge. Mucous membranes moist. Eyes PERRLA, EOM intact. There is no scleral icterus. No pallor noted. small bruise to the anterior mandible region. Flexion range of motion of mandible. Cardiopulmonary: RRR, no murmurs, rubs or gallops, no JVD noted. Lungs CTAB in anterior and posterior cruz. No peripheral edema. Abdominal exam: Abdomen soft and non-distended. Abdomen non-tender to palpation in all 4 quadrants. Bowel sounds active in LLQ. No hepatosplenomegaly. No ecchymosis Neuro: CN II-XII intact. No nuchal rigidity. No raccon eyes, no domínguez sign, no hemotympanum. No cervical spinal tenderness. MSK: No posterior calf tenderness bilaterally, homans sign negative bilaterally. Posterior tibialis and radial pulse +2 bilaterally. Sensation intact in upper and lower extremities. Full active ROM in upper and lower extremities, 5/5 stregnth. Limitations: no limitations Course Vital Signs 12/24/19 12/24/19 12/24/19 11:49 13:20 13:21 Temperature 98.4 F Pulse Rate 89 Pulse Rate [ 75 76 Sitting Relationship Mgr] Respiratory 16 16 16 Rate Blood Pressure 134/70 Blood Pressure 114/73 [Left Arm Sitting] Blood Pressure 115/83 [Left Arm Standing] Blood Pressure 114/76 [Left Arm Supine] O2 Sat by Pulse 100 99 100 Oximetry 12/24/19 12/24/19 13:22 13:23 Temperature Pulse Rate Pulse Rate [ 75 83 Sitting Relationship Mgr] Respiratory 16 16 Rate Blood Pressure Blood Pressure [Left Arm Sitting] Blood Pressure 115/83 [Left Arm Standing] Blood Pressure [Left Arm Supine] O2 Sat by Pulse 100 100 Oximetry Medical Decision Making - Medical Decision Making 29 year-old feel patient was ED for a syncopal episode. Patient reports that she stood up stretched herself or loss consciousness when she was out for a short period of time. Patient back to baseline now. Patient will signs are stable, afebrile. Physical exam displayed a small bruise in anterior mandible no other acute pathology is noted. EKG is nonischemic. Chest x-ray mandible x- ray did not reveal any acute process. Patient ambulated without difficulty. Patient will be discharged to follow up with primary care provider and will return to ED with any worsening symptoms. Case discussed with Dr. Carpenter. - Lab Data Lab Results 12/24/19 12/24/19 Range/Units 12:29 12:29 Urine Color Light Yellow Urine Appearance Clear (Clear) Urine pH 5.5 (5.0-8.0) Ur Specific Maxwell 1.010 (1.001-1.035) Urine Protein Negative (Negative) Urine Glucose (UA) Negative (Negative) Urine Ketones Negative (Negative) Urine Blood Negative (Negative) Urine Nitrite Negative (Negative) Urine Bilirubin Negative (Negative) Urine Urobilinogen <2.0 (<2.0) mg/dL Ur Leukocyte Esterase Negative (Negative) Urine HCG, Qual Not Detected (Not Detectd) - EKG Data -: EKG Interpreted by Me (and Dr Culver ) EKG Comments: Ventricular rate 7, DC interval 132, QRS 74, QT/QTc 404/439. Normal sinus rhythm, cannot rule out anterior infarct age undetermined. No concern for acute ischemia at this time. Disposition Clinical Impression: Syncope Disposition: HOME SELF-CARE Condition: Stable Instructions (If sedation given, give patient instructions): Syncope (ED) Additional Instructions: follow-up with primary care provider tomorrow. Return to ER if any worsening symptoms. Is patient prescribed a controlled substance at d/c from ED?: No Referrals: Elmo Montaño DO [Primary Care Provider] - 1-2 days
[2019-12-24 14:47] VITALS: BP 116/80; PULSE 76; TEMP 97.7
== END 2019-12-24 14:46 | disposition home or self-care (01) ==
LOC: EC 11:41
DX: R55 Syncope and collapse (principal); S00.83XA Contusion of other part of head, initial encounter; X58.XXXA Exposure to other specified factors, initial encounter
CPT/HCPCS: 70110; 71046; 81003; 81025; 93005; 99284